=== PATIENT | male | born 1990 | race Caucasian/White ===

== ENCOUNTER 2018-11-20 18:27 | Emergency (ER) | payer OTHER ==
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
[2018-11-20 18:46] VITALS: BP 138/83; PULSE 80; TEMP 97.8; BMI 35.7
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
== END 2018-11-20 21:51 | disposition home or self-care (01) ==
LOC: JERFT 18:27
DX: G44.89 Other headache syndrome (principal); V53.5XXD Driver of pick-up truck or van injured in collision with car, pick-up truck or van in traffic accident, subsequent encounter
CPT/HCPCS: 70450-TC; 99281-25